=== PATIENT | female | born 1930 | race Caucasian/White ===

== ENCOUNTER 2016-10-22 12:46 | Outpatient (CLI) | payer MEDICARE, OTHER | END 2016-10-22 12:47 | disposition home or self-care (01) | DX: S42.291A Other displaced fracture of upper end of right humerus, initial encounter for closed fracture (principal); S46.011A Strain of muscle(s) and tendon(s) of the rotator cuff of right shoulder, initial encounter; S46.111A Strain of muscle, fascia and tendon of long head of biceps, right arm, initial encounter; M24.011 Loose body in right shoulder; M75.81 Other shoulder lesions, right shoulder; M75.51 Bursitis of right shoulder; M19.011 Primary osteoarthritis, right shoulder ==

== ENCOUNTER 2016-12-18 09:59 | Outpatient (CLI) | payer MEDICARE, OTHER | END 2016-12-18 10:00 | disposition home or self-care (01) | DX: R05 Cough (principal); R06.00 Dyspnea, unspecified ==

== ENCOUNTER 2017-07-16 09:53 | Outpatient (CLI) | payer MEDICARE, OTHER ==
[2017-07-16 17:43] LABS: BASOPHILS # (AUTO) 0.1 10^3/uL (0.0-0.1); BASOPHILS % (AUTO) 1.2 %; EOSINOPHILS # (AUTO) 0.3 10^3/uL (0.0-0.7); EOSINOPHILS % (AUTO) 2.8 %; HCT - HEMATOCRIT 44.7 % (37.0-47.0); HGB - HEMOGLOBIN 14.7 g/dL (12.0-16.0); LYMPHOCYTES # (AUTO) 3.2 10^3/uL (1.5-3.5); LYMPHOCYTES % (AUTO) 35.1 %; MEAN PLATELET VOLUME 8.9 fL (7.9-10.8); MONOCYTES # (AUTO) 0.9 10^3/uL (0.0-1.0); NEUTROPHILS # (AUTO) 4.6 10^3/uL (1.5-6.6); NEUTROPHILS % (AUTO) 50.9 %; NUCLEATED RED BLOOD CELLS AUTO 0.1 /100WBC; RED BLOOD COUNT 4.75 10^6/uL (4.20-5.40)
[2017-07-16 17:51] LABS: ALBUMIN/GLOBULIN RATIO 1.1 (1.0-2.2); BILIRUBIN,TOTAL 0.5 mg/dL (0.2-1.0); CALCIUM 9.6 mg/dL (8.5-10.3); CREATININE 0.8 mg/dL (0.4-1.0); POTASSIUM 3.7 mmol/L (3.5-5.0); TOTAL PROTEIN 7.4 g/dL (6.7-8.2)
== END 2017-07-16 09:54 | disposition home or self-care (01) ==
LOC: LAB.F 09:53
PROVIDERS: ATTEND Nurse Practitioner Family
DX: E55.9 Vitamin D deficiency, unspecified (principal)
CPT/HCPCS: 36415; 80053; 82306; 85025

== ENCOUNTER 2017-11-03 16:53 | Outpatient (CLI) | payer MEDICARE, OTHER | END 2017-11-03 16:54 | disposition critical access hospital (66) | LOC: EMS 16:53 | PROVIDERS: ATTEND Surgery | DX: R53.1 Weakness (principal) | CPT/HCPCS: A0425; A0429 ==

== ENCOUNTER 2017-11-03 17:29 | Inpatient (IN) | payer MEDICARE, OTHER ==
--- NOTE | 2017-11-03 17:52 | ED Physician Documentation ---
PD HPI URI - Stated complaint Stated Complaint: SICK - Chief complaint Chief Complaint: General - History obtained from History obtained from: Patient - History of Present Illness Timing - onset: How many weeks ago (2) Timing duration: Weeks (2 weeks of progressive weakness, poor appetite and poor intake (not nauseated per se), and feeling malaise.) Timing details: Gradual onset, Still present Associated symptoms: Bilateral edema (mild chronic). No: Fever, Chills, Nasal congestion, Sore throat, Dry cough, Productive cough, Chest pain, Dyspnea, NVD Contributing factors: No: Sick contact, Travel, Immunocompromised, COPD / asthma Improves by: No: Rest Worsened by: Activity Similar symptoms before: Has not had sx before Recently seen: Not recently seen Review of Systems Constitutional: reports: Fatigue, Weight Loss (mild without noting looseness of clothing or such, but says she has been mainly in her pajamas the past few weeks anyway.). denies: Fever, Chills, Myalgias Eyes: denies: Photophobia, Discharge Ears: denies: Ear pain Nose: denies: Rhinorrhea / runny nose, Congestion Throat: denies: Dental pain / toothache, Sore throat Cardiac: denies: Chest pain / pressure, Palpitations Respiratory: denies: Dyspnea, Cough, Wheezing GI: denies: Abdominal Pain, Nausea (but says she just does not have any appetite nor desire to eat.), Vomiting, Diarrhea : denies: Dysuria, Frequency, Hematuria Skin: denies: Rash, Lesions Musculoskeletal: denies: Neck pain, Back pain Neurologic: reports: Generalized weakness. denies: Focal weakness, Numbness, Near syncope Psychiatric: denies: Depressed, Anxiety, Insomnia Endocrine: reports: Weight loss (mild). denies: Weight gain, Easy bruising / bleeding Immunocompromised: denies: Immunocompromised PD PAST MEDICAL HISTORY - Past Medical History Cardiovascular: Hypertension, High cholesterol GI: GERD, Hiatal hernia PAEDIATRIC PHYSIOTHERAPIST: Miscarriage(s) Musculoskeletal: Osteoarthritis - Past Surgical History Past Surgical History: Yes /PAEDIATRIC PHYSIOTHERAPIST: Dilation and currettage HEENT: Cataracts - Present Medications Home Medications: Ambulatory Orders Medication Instructions Recorded Confirmed Ergocalciferol [Vitamin D2] 1 tab PO DAILY 08/10/16 08/10/16 Chlorthalidone 0 mg 11/03/17 Docusate Sodium 250Mg Capsule 250 mg PO DAILY 11/03/17 11/03/17 [Colace 250Mg Capsule] - Allergies Allergies/Adverse Reactions: Allergies Allergy/AdvReac Type Severity Reaction Status Date / Time No Known Drug Allergies Allergy Verified 07/17/14 16:28 - Social History Does the pt smoke?: No Smoking Status: Never smoker Does the pt drink ETOH?: No Does the pt have substance abuse?: No - Family History Family history: reports: Non contributory - POLST Patient has POLST: No PD ED PE NORMAL - Vitals Vital signs reviewed: Yes - General General: Alert and oriented X 3, No acute distress, Well developed/nourished, Other (appears generally weak but conversant and interacts well. ) - HEENT HEENT: Atraumatic, PERRL, Ears normal, Pharynx benign. No: Moist mucous membranes - Neck Neck: Supple, no meningeal sign, No adenopathy - Cardiac Cardiac: No murmur, No rub. No: RRR (irregular and slightly tachycardic) - Respiratory Respiratory: Clear bilaterally - Abdomen Abdomen: Normal bowel sounds, Soft, Non tender, Non distended, No organomegaly - Female Female : Deferred - Rectal Rectal: Deferred - Back Back: No CVA TTP, No spinal TTP - Derm Derm: Normal color, Warm and dry, No rash - Extremities Extremities: No deformity, No tenderness to palpate, Normal ROM s pain, No calf tenderness / cord, Other (1+ edema in both legs and ankles. ) - Neuro Neuro: Alert and oriented X 3, No motor deficit, Normal speech Eye Opening: Spontaneous Motor: Obeys Commands Verbal: Oriented GCS Score: 15 - Psych Psych: Normal mood Results - Vitals Vitals: Vital Signs - 24 hr 11/03/17 11/03/17 11/03/17 17:33 20:14 22:08 Temperature 37.1 C 36.4 C L Heart Rate 106 H 84 103 H Respiratory 16 18 23 Rate Blood Pressure 116/79 113/76 115/79 O2 Saturation 98 95 95 11/03/17 11/03/17 11/03/17 22:13 22:18 22:43 Temperature Heart Rate 91 83 89 Respiratory 20 17 19 Rate Blood Pressure 109/67 120/72 110/92 H O2 Saturation 94 97 97 Oxygen O2 Source Room air - EKG (time done) 21:24 Rate: Rate (enter#) Rhythm: Atrial fibrillation (109) Arma: Normal QRS: Normal Ischemia: Normal ST segments, Non specific changes. No: ST elevation c/w ischemia, ST depression Compare to prior EKG: Old EKG unavailable - Labs Labs: Laboratory Tests 11/03/17 11/03/17 11/03/17 19:15 19:15 19:15 WBC 19.6 H RBC 4.50 Hgb 13.2 Hct 40.2 MCV 89.5 MCH 29.4 MCHC 32.9 RDW 14.5 Plt Count 327 MPV 8.4 Neut # Not Reportable Lymph # Not Reportable [place] # Not Reportable Eos # Not Reportable Baso # Not Reportable Absolute Nucleated RBC Not Reportable Total Counted 100 Band Neuts % (Manual) 3 Abnorm Lymph % (Manual) 0 Nucleated RBC % Not Reportable Neutrophils # (Manual) 16.1 H Lymphocytes # (Manual) 2.0 Monocytes # (Manual) 1.4 H Eosinophils # (Manual) 0.2 Basophils # (Manual) 0.0 Differential Comment MANUAL DIFFERENTIAL Manual Slide Review Indicated Platelet Estimate NORMAL (130-450,000) Platelet Morphology NORMAL APPEARANCE RBC Morph Micro Appear NORMAL APPEARANCE Sodium 134 L Potassium 2.9 L Chloride 92 L Carbon Dioxide 28 Anion Gap 14.0 H BUN 52 H Creatinine 1.4 H Estimated GFR (MDRD) 35 L Glucose 113 H Lactic Acid Calcium 9.2 Magnesium 2.1 Total Bilirubin 0.7 AST 28 ALT 22 Alkaline Phosphatase 54 Total Creatine Kinase 42 Troponin I Total Protein 6.5 L Albumin 2.5 L Globulin 4.0 Albumin/Globulin Ratio 0.6 L Lipase 29 TSH 0.95 Urine Color Urine Clarity Urine pH Ur Specific [place] Urine Protein Urine Glucose (UA) Urine Ketones Urine Occult Blood Urine Nitrite Urine Bilirubin Urine Urobilinogen Ur Leukocyte Esterase Urine RBC Urine WBC Ur Squamous Epith Cells Urine Bacteria Ur Microscopic Review Urine Culture Comments Influenza A (Rapid) Influenza B (Rapid) Influenza Types A,B Ag 11/03/1718 18 19:15 19:15 20:40 WBC RBC Hgb Hct MCV MCH MCHC RDW Plt Count MPV Neut # Lymph # [place] # Eos # Baso # Absolute Nucleated RBC Total Counted Band Neuts % (Manual) Abnorm Lymph % (Manual) Nucleated RBC % Neutrophils # (Manual) Lymphocytes # (Manual) Monocytes # (Manual) Eosinophils # (Manual) Basophils # (Manual) Differential Comment Manual Slide Review Platelet Estimate Platelet Morphology RBC Morph Micro Appear Sodium Potassium Chloride Carbon Dioxide Anion Gap BUN Creatinine Estimated GFR (MDRD) Glucose Lactic Acid 1.1 Calcium Magnesium Total Bilirubin AST ALT Alkaline Phosphatase Total Creatine Kinase Troponin I < 0.04 Total Protein Albumin Globulin Albumin/Globulin Ratio Lipase TSH Urine Color Urine Clarity Urine pH Ur Specific [place] Urine Protein Urine Glucose (UA) Urine Ketones Urine Occult Blood Urine Nitrite Urine Bilirubin Urine Urobilinogen Ur Leukocyte Esterase Urine RBC Urine WBC Ur Squamous Epith Cells Urine Bacteria Ur Microscopic Review Urine Culture Comments Influenza A (Rapid) Negative Influenza B (Rapid) Negative Influenza Types A,B Ag - 11/03/17 21:00 WBC RBC Hgb Hct MCV MCH MCHC RDW Plt Count MPV Neut # Lymph # [place] # Eos # Baso # Absolute Nucleated RBC Total Counted Band Neuts % (Manual) Abnorm Lymph % (Manual) Nucleated RBC % Neutrophils # (Manual) Lymphocytes # (Manual) Monocytes # (Manual) Eosinophils # (Manual) Basophils # (Manual) Differential Comment Manual Slide Review Platelet Estimate Platelet Morphology RBC Morph Micro Appear Sodium Potassium Chloride Carbon Dioxide Anion Gap BUN Creatinine Estimated GFR (MDRD) Glucose Lactic Acid Calcium Magnesium Total Bilirubin AST ALT Alkaline Phosphatase Total Creatine Kinase Troponin I Total Protein Albumin Globulin Albumin/Globulin Ratio Lipase TSH Urine Color YELLOW Urine Clarity HAZY Urine pH 6.5 Ur Specific [place] <=1.005 Urine Protein TRACE Urine Glucose (UA) NEGATIVE Urine Ketones NEGATIVE Urine Occult Blood MODERATE H Urine Nitrite POSITIVE H Urine Bilirubin NEGATIVE Urine Urobilinogen 0.2 (NORMAL) Ur Leukocyte Esterase MODERATE H Urine RBC 6-10 H Urine WBC 6-10 H Ur Squamous Epith Cells MANY Squamous H Urine Bacteria Many H Ur Microscopic Review INDICATED Urine Culture Comments NOT INDICATED Influenza A (Rapid) Influenza B (Rapid) Influenza Types A,B Ag - Rads (name of study) chest Radiology: Prelim report reviewed (no infiltrates; no signs of failure. ), EMP read contemporaneously PD MEDICAL DECISION MAKING - ED course Complexity details: reviewed results (has low potassium and gave supplements. Has positive UA for UTI and WBC of 19K, but no fever and normal lactate, so UTI but not septic. Apparent new onset atrial fib with slightly rapid response rate. This will want further workup. ), considered differential, d/w patient Departure - Departure Disposition: 66 [facility] DC/Xfer Clinical Impression: Dehydration, Hypokalemia, Generalized weakness, Atrial fibrillation, new onset UTI (urinary tract infection) Qualifiers: Urinary tract infection type: site unspecified Hematuria presence: without hematuria Qualified Code(s): N39.0 - Urinary tract infection, site not specified Condition: Stable Record reviewed to determine appropriate education?: Yes
[2017-11-03] MEDS ORDERED: FAMOTIDINE 20 MG TABLET PO STA (19:06)
[2017-11-03] MEDS ORDERED: SODIUM CHLORIDE 0.9% 1,000 ML IV ONE ×2 (19:06→19:07)
[2017-11-03] MEDS ORDERED: ONDANSETRON ODT 4 MG TABLET TL STA (19:07)
[2017-11-03 19:27] LABS: BASOPHILS % (AUTO) 0.8 %; EOSINOPHILS % (AUTO) 0.4 %; HGB - HEMOGLOBIN 13.2 g/dL (12.0-16.0); LYMPHOCYTES % (AUTO) 8.8 %; MEAN CORPUSCULAR HEMOGLOBIN 29.4 pg (27.0-31.0); MEAN CORPUSCULAR HGB CONC 32.9 g/dL (32.0-36.0); MEAN CORPUSCULAR VOLUME 89.5 fL (81.0-99.0); MEAN PLATELET VOLUME 8.4 fL (7.9-10.8); MONOCYTES % (AUTO) 11.1 %; NEUTROPHILS % (AUTO) 78.9 %; PLT - PLATELET COUNT 327 10^3/uL (130-450); RED CELL DISTRIBUTION WIDTH 14.5 % (12.0-15.0); WHITE BLOOD COUNT 19.6 x10^3/uL (4.8-10.8)
[2017-11-03 19:30] LABS: ABNORMAL LYMPHS % (MANUAL) 0 %
[2017-11-03 19:41] LABS: ALBUMIN 2.5 g/dL (3.2-5.5); ALBUMIN/GLOBULIN RATIO 0.6 (1.0-2.2); BILIRUBIN,TOTAL 0.7 mg/dL (0.2-1.0); CALCIUM 9.2 mg/dL (8.5-10.3); CREATININE 1.4 mg/dL (0.4-1.0); MAGNESIUM 2.1 mg/dL (1.7-2.8); TOTAL PROTEIN 6.5 g/dL (6.7-8.2)
[2017-11-03 19:42] LABS: BAND NEUTROPHILS % (MANUAL) 3 %; DIFFERENTIAL COMMENT MANUAL DIFFERENTIAL; EOSINOPHILS # (MANUAL) 0.2 10^3/uL (0-0.7); LYMPHOCYTES % (MANUAL) 10 %; MONOCYTES # (MANUAL) 1.4 10^3/uL (0.0-1.0); NEUTROPHILS # (MANUAL) 16.1 10^3/uL (1.5-6.6); NEUTROPHILS % (MANUAL) 79 %; PLATELET ESTIMATE, MANUAL NORMAL (130-450,000) (NORMAL); PLATELET MORPHOLOGY NORMAL APPEARANCE (NORMAL); RBC MORPHOLOGY (MULTIPLE) NORMAL APPEARANCE (NORMAL)
--- NOTE | 2017-11-03 20:00 | XRAY Report ---
EXAM: CHEST RADIOGRAPHY EXAM DATE: 11/03/2017 07:43 PM. CLINICAL HISTORY: Chest pain left sided. COMPARISON: 12/18/2016. TECHNIQUE: 2 views. FINDINGS: Lungs/Pleura: No focal consolidation. Mild diffuse interstitial prominence is similar to prior and li becky chronic. No pleural effusion. No pneumothorax. Normal volumes. Mediastinum: Heart and mediastinal contours are within normal limits. Hilar hernia again demonstrated . Other: None. IMPRESSION: No acute cardiopulmonary abnormality. [facility] Referring Provider Line: [phone] SITE ID: [id number]
[2017-11-03] MEDS ORDERED: POTASSIUM CHLOR 10 MEQ/100 ML 10 MEQ/100 ML BAG IV ONE (20:16)
[2017-11-03] MEDS ORDERED: POTASSIUM BICARB 25 MEQ TABLET PO STA (20:16)
[2017-11-03 21:08] LABS: BILIRUBIN,URINE NEGATIVE (NEGATIVE); GLUCOSE, URINE (UA) NEGATIVE (NEGATIVE); KETONES,URINE (UA) NEGATIVE (NEGATIVE); LEUKOCYTE ESTERASE, URINE MODERATE (NEGATIVE); NITRITE,URINE POSITIVE (NEGATIVE); OCCULT BLOOD,URINE MODERATE (NEGATIVE); PH,URINE 6.5 PH (5.0-7.5); PROTEIN,URINE TRACE mg/dL (NEGATIVE); UROBILINOGEN,URINE 0.2 (NORMAL) E.U./dL (NORMAL)
[2017-11-03 21:12] LABS: CLARITY,URINE HAZY (CLEAR)
[2017-11-03] MEDS ORDERED: cefTRIAXone 1 GM in SODIUM CHLORIDE 0.9% MINIBAG 100 ML IV STA (21:28)
[2017-11-03 21:29] LABS: BACTERIA,URINE Many /HPF (None Seen); SQUAMOUS EPITHELIAL CELL,UR MANY Squamous (<= Few)
[2017-11-03] MEDS ORDERED: METOPROLOL 5 MG/5 ML VIAL IVP STA (21:56)
[2017-11-03] MEDS ORDERED: ONDANSETRON 4 MG/2 ML VIAL IVP PRN (22:57)
[2017-11-03] MEDS ORDERED: MORPHINE 2 MG/ML CARPUJECT IVP PRN (22:57)
[2017-11-03] MEDS ORDERED: TEMAZEPAM 15 MG CAPSULE PO PRN (22:57)
[2017-11-03] MEDS ORDERED: ENOXAPARIN 40 MG/0.4 ML SYRINGE SUBQ SCH ×2 (23:00→23:07)
[2017-11-03] MEDS ORDERED: DIGOXIN 500 MCG/2 ML AMP IVP SCH (23:59)
[2017-11-04] MEDS: D5NS W/20 MEQ KCL 1,000 ML IV SCH ×2 (00:51→11:17)
[2017-11-04] MEDS: POTASSIUM CHLOR 10 MEQ/100 ML 10 MEQ/100 ML BAG IV SCH ×2 (00:51→03:20)
[2017-11-04] MEDS: SODIUM CHLORIDE FLUSH 0.9% 10 ML SYRINGE IVP PRN ×2 (00:53→22:01)
[2017-11-04] MEDS ORDERED: cefTRIAXone 1 GM in SODIUM CHLORIDE 0.9% MINIBAG 100 ML IV SCH ×2 (01:00→21:00)
[2017-11-04] MEDS ORDERED: ENOXAPARIN 40 MG/0.4 ML SYRINGE SUBQ SCH (02:00)
--- NOTE | 2017-11-04 03:23 | HISTORY & PHYSICAL EXAMINATION ---
DATE OF SERVICE: Physician: Hallie Trotter MD HISTORY OF PRESENT ILLNESS: This is an 87-year-old, white female with a history of heart murmur and leg edema. The patient presented to the hospital after "two weeks of being sick and staying in her [facility]." The patient was found to be very weak and in new onset of atrial fibrillation, and her workup shows a urinary tract infection without sepsis in labs and urinalysis. The patient denies any dysuria, urgency or frequency, or flank pain. She has a poor appetite and has nausea without vomiting. She has been anorexic for about 2 weeks and probably also not as thirsty and drinking normally, but taking her chlorthalidone for her leg edema. There have been no palpitations, chest pain or dyspnea. She has the same constant leg edema that is not increased. There has had no fever or rigors. She denies any diarrhea. ALLERGIES: NONE. MEDICATIONS AT HOME 1. Chlorthalidone, unknown dose daily. 2. Vitamin D3, unknown dose daily. 3. Colace 250 mg daily. SOCIAL HISTORY: She is a nonsmoker who never smoked, drinks no alcohol, uses no illicit drugs. FAMILY HISTORY: No inherited diseases. REVIEW OF SYSTEMS: A comprehensive review of systems was performed, and the pertinent positives and negatives are above. PHYSICAL EXAMINATION GENERAL: Elderly, white female. She is in no acute distress. VITAL SIGNS: Blood pressure 103/68, pulse is 94, in atrial fibrillation, afebrile, room air saturation 95%. HEENT: Unremarkable. NECK: Without JVD or carotid bruits. LUNGS: Clear. HEART: Sounds irregular and with a soft systolic murmur. ABDOMEN: Soft, nontender. Positive bowel sounds. EXTREMITIES: Trace pedal edema. No clubbing or cyanosis. NEUROLOGIC: Intact. LABORATORIES: Sodium 134, potassium 2.9, BUN 52, creatinine 1.4, magnesium 2.1 , lactic acid 1.1. Normal liver tests. Troponin not detectable. Albumin 2.5. TSH normal at 0.95. White blood count 19.6 with a left shift, hemoglobin 13.2, platelet count normal at 327. No INR was done. Influenza A and B are negative. Her urinalysis showed a pH of 6.5 with moderate occult blood and positive nitrites and moderate leukocyte esterase, moderate red cells and white cells and many bacteria. Chest x-ray unremarkable. IMPRESSION/DIAGNOSES 1. Urinary tract infection. 2. New onset of atrial fibrillation with borderline rapid rate. 3. Hypokalemia. 4. Dehydration as evidenced by her acute tubular necrosis with elevated BUN/ creatinine. PLAN: Admit the patient on telemetry and administer digoxin x1 IV 250 mcg. She has already received one dose of IV beta radha IV push in the ER. There is evidence of chronotropic incompetence as her atrial fibrillation rate is not very tachycardic. Cycle troponins to rule out SC and follow her EKG. Obtain an Echo to evaluate LV and RV contractility and valvular function. The patient's CHADS score is 1 for age over 79, therefore aspirin on a daily basis is adequate for stroke prophylaxis; however, if tomorrow's Echo reveals that she does have congestive heart failure then her score would be 2 and she would then be a candidate for long-term anticoagulation for stroke prevention. Because of this latter reason, I have started Lovenox at 1 mg/kg qd. (at a treatment dose, not a prophylactic DVT dose), due to renal dysfunction. The determination about type of stroke prevention treatment will be made after tomorrow's evaluations. Start the patient on IV fluids with D5 for calories, normal saline for her hyponatremia with potassium additive, and also give iv potassium riders. Hold her triamterene/HCTZ. Obtain a urine culture and blood culture, and continue with the empiric IV ceftriaxone that was started in the emergency room, for UTI treatment. CODE STATUS: FULL CODE. DEEP VENOUS THROMBOSIS PROPHYLAXIS: Lovenox. ATTESTATION: The patient is expected to be discharged or transferred to another facility within 96 hours: Yes. TD: 11/04/2017 03:14 SCOOBY
[2017-11-04] MEDS: SODIUM CHLORIDE FLUSH 0.9% 10 ML SYRINGE IVP SCH ×3 (05:23→21:18)
[2017-11-04 06:03] LABS: BASOPHILS % (AUTO) 0.2 %; EOSINOPHILS # (AUTO) 0.1 10^3/uL (0.0-0.7); EOSINOPHILS % (AUTO) 0.6 %; HGB - HEMOGLOBIN 11.6 g/dL (12.0-16.0); LYMPHOCYTES # (AUTO) 1.4 10^3/uL (1.5-3.5); LYMPHOCYTES % (AUTO) 7.7 %; MEAN CORPUSCULAR HEMOGLOBIN 29.5 pg (27.0-31.0); MEAN CORPUSCULAR HGB CONC 32.4 g/dL (32.0-36.0); MEAN PLATELET VOLUME 8.6 fL (7.9-10.8); MONOCYTES % (AUTO) 11.1 %; NEUTROPHILS # (AUTO) 14.4 10^3/uL (1.5-6.6); NEUTROPHILS % (AUTO) 80.4 %; PLT - PLATELET COUNT 288 10^3/uL (130-450); RED BLOOD COUNT 3.94 10^6/uL (4.20-5.40); RED CELL DISTRIBUTION WIDTH 14.2 % (12.0-15.0); WHITE BLOOD COUNT 17.9 x10^3/uL (4.8-10.8)
[2017-11-04 06:25] LABS: CREATININE 1.2 mg/dL (0.4-1.0)
[2017-11-04 06:27] LABS: PLATELET ESTIMATE, MANUAL NORMAL (130-450,000) (NORMAL); PLATELET MORPHOLOGY NORMAL APPEARANCE (NORMAL); RBC MORPHOLOGY (MULTIPLE) NORMAL APPEARANCE (NORMAL)
[2017-11-04] MEDS ORDERED: POTASSIUM CHLORIDE 10 MEQ CAPSULE PO SCH (08:00)
[2017-11-04] MEDS: FAMOTIDINE 20 MG TABLET PO SCH (08:39)
[2017-11-04] MEDS: ASPIRIN EC 325 MG TABLET PO SCH (08:39)
[2017-11-04] MEDS: DOCUSATE SODIUM 250 MG CAPSULE PO SCH (08:39)
[2017-11-04] MEDS: ENOXAPARIN 80 MG/0.8 ML SYRINGE SUBQ SCH (08:39)
--- NOTE | 2017-11-04 09:16 | PROVIDER PROGRESS NOTE ---
Subjective - Prog Note Date Prog Note Date: 11/04/17 Prog Note Time: 09:14 - Subjective Pt reports feeling: Improved Subjective: Patient sitting up in bed, just finished breakfast, she says "I am sooo much better". She reports improved appetite which was very poor x2 weeks. Her fatigue feels resolved but she has not exerted herself yet. She denies chest pain, SOB, abdominal or back pain. She denies nausea, constipation or diarrhea. Denies swelling in her legs. Current Medications - Current Medications Current Medications: Active Medications Acetaminophen (Tylenol) 650 mg PO Q4HR PRN PRN Reason: Pain or Fever > 38C (100.4F) Aspirin (Ecotrin) 325 mg PO DAILY [facility] Last Admin: 11/04/17 08:39 Dose: 325 mg Docusate Sodium (Colace 250mg Capsule) 250 mg PO DAILY [facility] Last Admin: 11/04/17 08:39 Dose: 250 mg Enoxaparin Sodium (Lovenox) 70 mg SUBQ DAILY [facility] Last Admin: 11/04/17 08:39 Dose: 70 mg Famotidine (Pepcid) 20 mg PO DAILY [facility] Last Admin: 11/04/17 08:39 Dose: 20 mg Potassium Chloride/Dextrose/Sod Cl () 1,000 mls @ 100 mls/hr IV .Q10H [facility] Last Admin: 11/04/17 00:51 Dose: 100 mls/hr Ceftriaxone Sodium 1 gm/ (Sodium Chloride) 100 mls @ 200 mls/hr IV Q24H [facility] Morphine Sulfate (Morphine (Carpuject)) 2 mg IVP Q2HR PRN PRN Reason: Pain 8 to 10 Ondansetron HCl (Zofran Inj) 4 mg IVP Q6HR PRN PRN Reason: Nausea / Vomiting Polyethylene Glycol (Miralax) 17 gm PO DAILY [facility] Potassium Chloride (Micro-K) 10 meq PO DAILYWM [facility] Last Admin: 11/04/17 08:39 Dose: 10 meq Sodium Chloride (Normal Saline Flush 0.9%) 10 ml IVP PRN PRN PRN Reason: NEEDED PER PROVIDER ORDERS Last Admin: 11/04/17 00:53 Dose: 10 ml Sodium Chloride (Normal Saline Flush 0.9%) 10 ml IVP Q8HR [facility] Last Admin: 11/04/17 05:23 Dose: Not Given Temazepam (Restoril) 15 mg PO QPM PRN PRN Reason: Insomnia Chlorthalidone 12.5 mg PO DAILY 11/03/17 Cholecalciferol (Vitamin D3) [Vitamin D3] 5,000 units PO DAILY 11/04/17 Docusate Sodium 200 mg PO DAILY 11/04/17 Objective - Vital Signs/Intake & Output Reviewed Vital Signs: Yes Vital Signs: Vital Signs x48h Temp Pulse Resp BP Pulse Ox 11/04/17 07:48 36.3 C L 95 18 113/68 94 11/04/17 05:00 36.8 C 96 16 124/57 L 94 Intake & Output: Intake & Output 11/01/17 11/02/17 11/03/17 11/04/17 23:59 23:59 23:59 23:59 Intake Total 500 Balance 500 - Objective General Appearance: positive: No acute distress, Alert Eyes Bilateral: positive: PERRL, No scleral icterus ENT: positive: Pharynx nml, No signs of dehydration Neck: positive: No JVD Respiratory: positive: Chest non-tender, No respiratory distress, Breath sounds nml Cardiovascular: positive: Irregularly irregular, Systolic murmur Peripheral Pulses: 1+ Dorsalis pedis (R), 1+ Dorsalis pedis (L), 2+ Radial (R), 2+ Radial (L) Abdomen: positive: Non-tender, Nml bowel sounds, No distention Skin: positive: Color nml, No rash, Warm, Dry Extremities: positive: Non-tender, Full ROM, Nml appearance, No pedal edema Neurologic/Psychiatric: positive: Oriented x3, Motor nml, Sensation nml, Mood/ affect nml - Lab Results Fish Bones: 11/04/17 05:24 11/04/17 05:24 Other Labs: Lab Results x24hrs 11/04/17 11/04/17 11/04/17 Range/Units 05:24 05:24 05:24 WBC 17.9 H (4.8-10.8) x10^3/uL RBC 3.94 L (4.20-5.40) 10^6/uL Hgb 11.6 L (12.0-16.0) g/dL Hct 35.9 L (37.0-47.0) % MCV 91.0 (81.0-99.0) fL MCH 29.5 (27.0-31.0) pg MCHC 32.4 (32.0-36.0) g/dL RDW 14.2 (12.0-15.0) % Plt Count 288 (130-450) 10^3/uL MPV 8.6 (7.9-10.8) fL Neut # 14.4 H (1.5-6.6) 10^3/uL Lymph # 1.4 L (1.5-3.5) 10^3/uL [place] # 2.0 H (0.0-1.0) 10^3/uL Eos # 0.1 (0.0-0.7) 10^3/uL Baso # 0.0 (0.0-0.1) 10^3/uL Absolute Nucleated RBC 0.01 x10^3/uL Nucleated RBC % 0.0 /100WBC Manual Slide Review Indicated Platelet Estimate NORMAL (130-450,000) (NORMAL) Platelet Morphology NORMAL APPEARANCE (NORMAL) RBC Morph Micro Appear NORMAL APPEARANCE (NORMAL) Sodium 136 (135-145) mmol/L Potassium 3.8 (3.5-5.0) mmol/L Chloride 101 (101-111) mmol/L Carbon Dioxide 26 (21-32) mmol/L Anion Gap 9.0 (6-13) BUN 38 H (6-20) mg/dL Creatinine 1.2 H (0.4-1.0) mg/dL Estimated GFR (MDRD) 42 L (>89) Glucose 138 H (70-100) mg/dL Calcium 8.0 L (8.5-10.3) mg/dL Magnesium 2.0 (1.7-2.8) mg/dL Troponin I 0.08 (<0.49) ng/mL Assessment/Plan - Problem List (1) Atrial fibrillation, new onset Impression: Presented with fatigue, noted to be in Afib with rate in 110s, rate controlled after IV metoprolol and IV dig. Rate now 80s. Symptoms resolved. Trop <0.03--> 0.08, still not + and I suspect due to stress fo infection/afib. -ASA 325 given CHADS score 1, no falls x1yr -Continue low dose toprol xl, with parameters -No need for tele given controlled rate -Repeat trop at 11am -ECHO I educated patient on patho of afib and stroke risk and stratification. (2) ROMI (acute kidney injury) Impression: Based on RIFLE criteria patient sustained ROMI given creatinine 1.4 with baseline of 0.8. This appears due to dehydration from poor PO intake and and concomitant use of diuretics. Given 2L NS and then MIVF and creat improving. Also ate well from breakfast. -Recheck creat @11 and DC IV fluids -Encourage PO intake -Hold triamterene/HCTZ -Avoid nephrotoxic agents (3) Hypokalemia Impression: K of 2.9 on arrival, likely from diuretics + poor PO intake. Given IV and PO replacement. K now 3.8. -DC PO KCl -MIVF+KCl this afternoon (4) Urinary tract infection Impression: No prior history, WBC 19k, but UA in ER contaminated, only symptom is urgency but that just started here after IVF boluses. Given CTX in ER. -Recollect UA via straight cath -Await urine cx -Continue CTX in the meantime +met SEPSIS criteria (leukocytosis and tachycardia) with urinary source. Given 2L NS and antibx and sepsis physiology has resolved. Qualifiers: Urinary tract infection type: acute cystitis Hematuria presence: with hematuria Qualified Code(s): N30.01 - Acute cystitis with hematuria (5) Generalized weakness Impression: Having generalized weakness/fatigue at home for weeks, this likely could be from her Afib. She also had poor appetite and that could have compounded things. Now feeling back to her usual self, eating well. -Mobilize with RN in room, asses for any further needs (6) Sepsis Impression: RESOLVED. Related to UTI, see above HOSPITAL ISSUES: DVT prophylaxis: Lovenox Code Status: FULL DC PLAN: later today or tomorrow based on patients response to therapy
[2017-11-04] MEDS: POLYETHYLENE GLYCOL 3350 17 GM PACKET PO SCH (10:23)
[2017-11-04 10:28] LABS: BILIRUBIN,URINE NEGATIVE (NEGATIVE); GLUCOSE, URINE (UA) NEGATIVE (NEGATIVE); KETONES,URINE (UA) NEGATIVE (NEGATIVE); LEUKOCYTE ESTERASE, URINE SMALL (NEGATIVE); NITRITE,URINE NEGATIVE (NEGATIVE); OCCULT BLOOD,URINE MODERATE (NEGATIVE); PROTEIN,URINE NEGATIVE (NEGATIVE); UROBILINOGEN,URINE 0.2 (NORMAL) E.U./dL (NORMAL)
[2017-11-04 10:30] LABS: CLARITY,URINE HAZY (CLEAR)
[2017-11-04 10:37] LABS: BACTERIA,URINE Few /HPF (None Seen); RBC,URINE 0-5 /HPF (0-5); SQUAMOUS EPITHELIAL CELL,UR MANY Squamous (<= Few); WBC CLUMPS,URINE PRESENT
[2017-11-04] MEDS ORDERED: METOPROLOL TARTRATE 25 MG TABLET PO SCH (21:00)
[2017-11-05] MEDS: SODIUM CHLORIDE FLUSH 0.9% 10 ML SYRINGE IVP SCH ×2 (05:40→09:06)
[2017-11-05 05:47] LABS: HGB - HEMOGLOBIN 11.9 g/dL (12.0-16.0); MEAN CORPUSCULAR HEMOGLOBIN 29.4 pg (27.0-31.0); MEAN CORPUSCULAR HGB CONC 32.6 g/dL (32.0-36.0); MEAN CORPUSCULAR VOLUME 90.2 fL (81.0-99.0); MEAN PLATELET VOLUME 8.4 fL (7.9-10.8); RED BLOOD COUNT 4.04 10^6/uL (4.20-5.40); RED CELL DISTRIBUTION WIDTH 14.6 % (12.0-15.0); WHITE BLOOD COUNT 15.5 x10^3/uL (4.8-10.8)
[2017-11-05 05:54] LABS: CALCIUM 8.5 mg/dL (8.5-10.3); CREATININE 1.1 mg/dL (0.4-1.0)
[2017-11-05] MEDS: DOCUSATE SODIUM 250 MG CAPSULE PO SCH (08:42)
[2017-11-05] MEDS: ASPIRIN EC 325 MG TABLET PO SCH (08:42)
[2017-11-05] MEDS: ENOXAPARIN 80 MG/0.8 ML SYRINGE SUBQ SCH (08:42)
[2017-11-05] MEDS: FAMOTIDINE 20 MG TABLET PO SCH (08:42)
[2017-11-05] MEDS: POLYETHYLENE GLYCOL 3350 17 GM PACKET PO SCH (08:44)
[2017-11-05] MEDS: METOPROLOL SUCCINATE 25 MG TABLET PO SCH ×2 (08:48→20:32)
[2017-11-05] MEDS ORDERED: DOCUSATE SODIUM 250 MG CAPSULE PO SCH ×2 (09:00→09:05)
--- NOTE | 2017-11-05 12:55 | PROVIDER PROGRESS NOTE ---
<Tali Aguirre L - Last Filed: 11/05/17 19:59> Subjective - Subjective Subjective: she was stable enough for discharge today until her afib rate sped up so held one more day she is without IV since it fell out. IV meds stopped and po meds substituted where appropriate: Macrobid for UTI. Objective - Vital Signs/Intake & Output Vital Signs: Vital Signs x48h Temp Pulse Resp BP BP Pulse Ox 11/05/17 16:07 36.9 C 78 24 151/82 H 98 11/05/17 13:00 36.7 C 99 18 149/82 H 94 Intake & Output: Intake & Output 11/02/17 11/03/17 11/04/17 11/05/17 23:59 23:59 23:59 23:59 Intake Total 2451.667 780.033 Output Total 350 Balance 2101.667 780.033 - Lab Results Fish Bones: 11/05/17 05:21 11/05/17 05:21 Other Labs: Lab Results x24hrs 11/05/17 11/05/17 Range/Units 05:21 05:21 WBC 15.5 H (4.8-10.8) x10^3/uL RBC 4.04 L (4.20-5.40) 10^6/uL Hgb 11.9 L (12.0-16.0) g/dL Hct 36.5 L (37.0-47.0) % MCV 90.2 (81.0-99.0) fL MCH 29.4 (27.0-31.0) pg MCHC 32.6 (32.0-36.0) g/dL RDW 14.6 (12.0-15.0) % Plt Count 364 (130-450) 10^3/uL MPV 8.4 (7.9-10.8) fL Sodium 137 (135-145) mmol/L Potassium 4.0 (3.5-5.0) mmol/L Chloride 105 (101-111) mmol/L Carbon Dioxide 26 (21-32) mmol/L Anion Gap 6.0 (6-13) BUN 24 H (6-20) mg/dL Creatinine 1.1 H (0.4-1.0) mg/dL Estimated GFR (MDRD) 47 L (>89) Glucose 103 H (70-100) mg/dL Calcium 8.5 (8.5-10.3) mg/dL <Flori Enriquez - Last Filed: 11/06/17 11:41> Subjective - Prog Note Date Prog Note Date: 11/05/17 Prog Note Time: 12:55 - Subjective Pt reports feeling: Improved Subjective: Patient complained of low energy. She denied SOB, chest pain or pressure, N/V or a new cough. She states, she "just feels tired". Current Medications - Current Medications Current Medications: Active Medications Acetaminophen (Tylenol) 650 mg PO Q4HR PRN PRN Reason: Pain or Fever > 38C (100.4F) Last Admin: 11/05/17 23:56 Dose: 650 mg Aspirin (Ecotrin) 325 mg PO DAILY [facility] Last Admin: 11/06/17 09:39 Dose: 325 mg Chlorthalidone (Chlorthalidone) 12.5 mg PO DAILY [facility] Last Admin: 11/06/17 09:39 Dose: 12.5 mg Enoxaparin Sodium (Lovenox) 70 mg SUBQ DAILY [facility] Last Admin: 11/06/17 09:40 Dose: 70 mg Famotidine (Pepcid) 20 mg PO DAILY [facility] Last Admin: 11/06/17 09:39 Dose: 20 mg Metoprolol Succinate (Toprol Xl) 25 mg PO DAILY [facility] Last Admin: 11/06/17 09:39 Dose: 25 mg Nitrofurantoin (Macrobid) 100 mg PO BID [facility] Last Admin: 11/06/17 09:39 Dose: 100 mg Polyethylene Glycol (Miralax) 17 gm PO DAILY [facility] Last Admin: 11/06/17 07:32 Dose: Not Given Temazepam (Restoril) 15 mg PO QPM PRN PRN Reason: Insomnia Chlorthalidone 12.5 mg PO DAILY 11/03/17 Cholecalciferol (Vitamin D3) [Vitamin D3] 5,000 units PO DAILY 11/04/17 Docusate Sodium 200 mg PO DAILY 11/04/17 Objective - Vital Signs/Intake & Output Reviewed Vital Signs: Yes Vital Signs: Vital Signs x48h Temp Pulse Resp BP Pulse Ox 11/05/17 08:46 36.6 C 98 20 135/78 H 95 11/05/17 05:20 36.6 C 95 16 148/82 H 95 Intake & Output: Intake & Output 11/02/17 11/03/17 11/04/17 11/05/17 23:59 23:59 23:59 23:59 Intake Total 2451.667 780.033 Output Total 350 Balance 2101.667 780.033 - Objective General Appearance: positive: No acute distress Eyes Bilateral: positive: Normal inspection Eyes: OU Conjunctivae pale ENT: positive: ENT inspection nml, Pharynx nml, Dry mucous membranes Neck: positive: Nml inspection, Thyroid nml, No JVD, Stiff neck Respiratory: positive: Chest non-tender, No respiratory distress, Breath sounds nml, Other (diminished.) Peripheral Pulses: 2+ Radial (R), 2+ Radial (L) Abdomen: positive: Non-tender, No organomegaly, Nml bowel sounds, No distention Back: positive: Nml inspection Skin: positive: No rash, Warm, Dry, Pallor Extremities: positive: Non-tender, Full ROM Neurologic/Psychiatric: positive: Disoriented to time, Weakness, Sensory loss, Depressed mood/affect, Other (baseline delay) Reflexes: Bicep (R): 2+, Bicep (L): 2+ - Lab Results Fish Bones: 11/06/17 05:24 11/06/17 05:24 Other Labs: Lab Results x24hrs 11/05/17 11/05/17 Range/Units 05:21 05:21 WBC 15.5 H (4.8-10.8) x10^3/uL RBC 4.04 L (4.20-5.40) 10^6/uL Hgb 11.9 L (12.0-16.0) g/dL Hct 36.5 L (37.0-47.0) % MCV 90.2 (81.0-99.0) fL MCH 29.4 (27.0-31.0) pg MCHC 32.6 (32.0-36.0) g/dL RDW 14.6 (12.0-15.0) % Plt Count 364 (130-450) 10^3/uL MPV 8.4 (7.9-10.8) fL Sodium 137 (135-145) mmol/L Potassium 4.0 (3.5-5.0) mmol/L Chloride 105 (101-111) mmol/L Carbon Dioxide 26 (21-32) mmol/L Anion Gap 6.0 (6-13) BUN 24 H (6-20) mg/dL Creatinine 1.1 H (0.4-1.0) mg/dL Estimated GFR (MDRD) 47 L (>89) Glucose 103 H (70-100) mg/dL Calcium 8.5 (8.5-10.3) mg/dL - Diagnostic Imaging Diagnostic Imaging Results: positive: Final report reviewed Assessment/Plan - Problem List (1) ROIM (acute kidney injury) Impression: Patient had an elevated creatinine of 1.4 on admission with baseline of 0.8. This appears due to dehydration from poor PO intake and use of diuretics. Patient was given 2L NS. Creatinine has been slowly improving and was trending downward today at 1.1. She has had improved PO intake. Plan: -Encourage PO intake -Hold triamterene/HCTZ -Avoid nephrotoxic agents (2) Atrial fibrillation, new onset Impression: Presented with fatigue, noted to be in Afib with rate in 110s, rate controlled after IV metoprolol and a few doses of dig IV. Symptoms resolved. Trop <0.03-- > 0.08, and now normal at 0.04, and this may have been due to stress of infection/afib. Plan: -ASA 325 given CHADS score 1, no falls x1yr -Increased dose and changed metoprolol to toprol xl, with parameters. (3) Generalized weakness Impression: Having generalized weakness/fatigue at home for weeks, this likely could be from her Afib. She also had poor appetite and that could have compounded things. Now feeling back to her usual self, eating well. Plan: -Mobilize with RN in room, asses for any further needs (4) Hypokalemia Impression: K of 2.9 on arrival, likely from diuretics + poor PO intake. Given IV and PO replacement. K now 4.0. Plan: Continue to monitor. (5) Urinary tract infection Impression: No prior history, WBC 19k, but UA in ER contaminated, only symptom is urgency but that just started here after IVF boluses. Given CTX in ER. Urine cultures were not indicated. Patient has been afebrile. IV dosing was completed, so PO macrobid was started by ASA RANDLE. Plan: continue treatment and encourage frequent toileting. Qualifiers: Urinary tract infection type: acute cystitis Hematuria presence: with hematuria Qualified Code(s): N30.01 - Acute cystitis with hematuria
[2017-11-05] MEDS: NITROFURANTOIN MACRO 100 MG CAPSULE PO SCH (20:32)
[2017-11-05] MEDS: ACETAMINOPHEN 325 MG TABLET PO PRN (23:56)
--- NOTE | 2017-11-06 02:15 | PROVIDER PROGRESS NOTE ---
Car Usher Note - Car Usher Note Car Usher Note: 11/06/17 02:11 she spiked a temp late this evening with a subsequent rise of pulse rate to 110' s. Once fever down, pulse came down. no complaints other that pleuritic right flank pain but that was fleeting and went away. she is now on macrodantin since the evening for UTI and IV out. 93% on RA, pulse 90 right now asleep, awakens easily confused? bc she describes the flank pain as chest pain but none now. comfortable. clear lungs irreg rate and rhythm. abd bening. A/P fever in a pt w UTI. off IV abx and on oral starting 24 hours later. if spikes again, reculture. resume IV abx. tachycardia from fever resolved.
[2017-11-06 06:12] LABS: BASOPHILS % (AUTO) 0.3 %; EOSINOPHILS % (AUTO) 0.3 %; HGB - HEMOGLOBIN 12.1 g/dL (12.0-16.0); LYMPHOCYTES % (AUTO) 7.8 %; MEAN CORPUSCULAR HEMOGLOBIN 29.5 pg (27.0-31.0); MEAN CORPUSCULAR HGB CONC 32.5 g/dL (32.0-36.0); MEAN CORPUSCULAR VOLUME 90.8 fL (81.0-99.0); MONOCYTES % (AUTO) 7.5 %; NEUTROPHILS % (AUTO) 84.1 %; PLT - PLATELET COUNT 384 10^3/uL (130-450); RED CELL DISTRIBUTION WIDTH 14.5 % (12.0-15.0); WHITE BLOOD COUNT 20.1 x10^3/uL (4.8-10.8)
[2017-11-06 06:18] LABS: ALBUMIN 2.1 g/dL (3.2-5.5); ALBUMIN/GLOBULIN RATIO 0.6 (1.0-2.2); BILIRUBIN,TOTAL 0.5 mg/dL (0.2-1.0); CALCIUM 8.6 mg/dL (8.5-10.3); TOTAL PROTEIN 5.9 g/dL (6.7-8.2)
[2017-11-06 06:25] LABS: ABNORMAL LYMPHS % (MANUAL) 0 %
[2017-11-06 06:50] LABS: BAND NEUTROPHILS % (MANUAL) 3 %; DIFFERENTIAL COMMENT MANUAL DIFFERENTIAL; EOSINOPHILS # (MANUAL) 0.4 10^3/uL (0-0.7); LYMPHOCYTES # (MANUAL) 2.4 10^3/uL (1.5-3.5); LYMPHOCYTES % (MANUAL) 11 %; MONOCYTES # (MANUAL) 1.4 10^3/uL (0.0-1.0); MYELOCYTES % (MANUAL) 1 %; NEUTROPHILS # (MANUAL) 15.7 10^3/uL (1.5-6.6); NEUTROPHILS % (MANUAL) 75 %; PLATELET ESTIMATE, MANUAL NORMAL (130-450,000) (NORMAL); RBC MORPHOLOGY (MULTIPLE) NORMAL APPEARANCE (NORMAL)
[2017-11-06] MEDS: POLYETHYLENE GLYCOL 3350 17 GM PACKET PO SCH (07:32)
[2017-11-06] MEDS ORDERED: METOPROLOL SUCCINATE 25 MG TABLET PO SCH (09:00)
[2017-11-06] MEDS: ASPIRIN EC 325 MG TABLET PO SCH (09:39)
[2017-11-06] MEDS: NITROFURANTOIN MACRO 100 MG CAPSULE PO SCH ×2 (09:39→21:28)
[2017-11-06] MEDS: CHLORTHALIDONE 25 MG TABLET PO SCH (09:39)
[2017-11-06] MEDS: FAMOTIDINE 20 MG TABLET PO SCH (09:39)
[2017-11-06] MEDS: ENOXAPARIN 80 MG/0.8 ML SYRINGE SUBQ SCH (09:40)
--- NOTE | 2017-11-06 11:13 | XRAY Report ---
TWO VIEW CHEST: 11/03/2017 CLINICAL INDICATION: Fever, rib pain. COMPARISON: 11/03/2017 FINDINGS: Frontal and lateral views of the chest demonstrate a mildly enlarged cardiac silhouette. There is a moderate hiatal hernia present. Trace effusions are seen posteriorly. No focal infiltrate or pneumothorax is present. IMPRESSION: CARDIOMEGALY AND TRACE EFFUSIONS. MODERATE HIATAL HERNIA. TD: 11/06/2017 11:13
--- NOTE | 2017-11-06 11:42 | PROVIDER PROGRESS NOTE ---
Subjective - Prog Note Date Prog Note Date: 11/06/17 Prog Note Time: 11:42 - Subjective Pt reports feeling: No change Subjective: Natalya had no complaints but continues to have a poor appetite. She states that her energy is slowly improving. She denies chest pain, SOB, N/V or a new cough. I updated her daughter via phone per request and plan for an additional phone call in the AM. Current Medications - Current Medications Current Medications: Active Medications Acetaminophen (Tylenol) 650 mg PO Q4HR PRN PRN Reason: Pain or Fever > 38C (100.4F) Last Admin: 11/05/17 23:56 Dose: 650 mg Aspirin (Ecotrin) 325 mg PO DAILY [facility] Last Admin: 11/06/17 09:39 Dose: 325 mg Chlorthalidone (Chlorthalidone) 12.5 mg PO DAILY [facility] Last Admin: 11/06/17 09:39 Dose: 12.5 mg Enoxaparin Sodium (Lovenox) 70 mg SUBQ DAILY [facility] Last Admin: 11/06/17 09:40 Dose: 70 mg Famotidine (Pepcid) 20 mg PO DAILY [facility] Last Admin: 11/06/17 09:39 Dose: 20 mg Metoprolol Succinate (Toprol Xl) 37.5 mg PO DAILY [facility] Nitrofurantoin (Macrobid) 100 mg PO BID [facility] Last Admin: 11/06/17 09:39 Dose: 100 mg Polyethylene Glycol (Miralax) 17 gm PO DAILY [facility] Last Admin: 11/06/17 07:32 Dose: Not Given Temazepam (Restoril) 15 mg PO QPM PRN PRN Reason: Insomnia Chlorthalidone 12.5 mg PO DAILY 11/03/17 Cholecalciferol (Vitamin D3) [Vitamin D3] 5,000 units PO DAILY 11/04/17 Docusate Sodium 200 mg PO DAILY 11/04/17 Objective - Vital Signs/Intake & Output Reviewed Vital Signs: Yes Vital Signs: Vital Signs x48h Temp Pulse Resp BP Pulse Ox 11/06/17 07:29 36.6 C 95 20 130/74 95 11/06/17 05:19 36.4 C L 94 16 134/86 H 94 Intake & Output: Intake & Output 11/03/17 11/04/17 11/05/17 11/06/17 23:59 23:59 23:59 23:59 Intake Total 2451.667 980.033 630 Output Total 350 Balance 2101.667 980.033 630 - Objective General Appearance: positive: No acute distress, Alert Eyes Bilateral: positive: Normal inspection, PERRL ENT: positive: ENT inspection nml, Pharynx nml, No signs of dehydration Neck: positive: Nml inspection, Thyroid nml, Trachea midline Respiratory: positive: Chest non-tender, No respiratory distress, Breath sounds nml Cardiovascular: positive: No gallop, Irregularly irregular, Systolic murmur, Decreased pulse(s) Peripheral Pulses: 2+ Radial (R), 2+ Radial (L) Abdomen: positive: Non-tender, No organomegaly, Nml bowel sounds, No distention Back: positive: Nml inspection Skin: positive: No rash, Warm, Dry Extremities: positive: Non-tender, Full ROM, Nml appearance, Pedal edema (mild) Neurologic/Psychiatric: positive: CN's nml (2-12), Weakness, Sensory loss, Depressed mood/affect Reflexes: Bicep (R): 2+, Bicep (L): 2+ - Lab Results Fish Bones: 11/06/17 05:24 11/06/17 05:24 Other Labs: Lab Results x24hrs 11/06/17 11/06/17 Range/Units 05:24 05:24 WBC 20.1 H (4.8-10.8) x10^3/uL RBC 4.10 L (4.20-5.40) 10^6/uL Hgb 12.1 (12.0-16.0) g/dL Hct 37.2 (37.0-47.0) % MCV 90.8 (81.0-99.0) fL MCH 29.5 (27.0-31.0) pg MCHC 32.5 (32.0-36.0) g/dL RDW 14.5 (12.0-15.0) % Plt Count 384 (130-450) 10^3/uL MPV 8.0 (7.9-10.8) fL Neut # Not Reportable Lymph # Not Reportable [place] # Not Reportable Eos # Not Reportable Baso # Not Reportable Absolute Nucleated RBC Not Reportable Total Counted 100 Band Neuts % (Manual) 3 (0 - 10) % Reactive Lymphs % (Man) 1 % Abnorm Lymph % (Manual) 0 % Myelocytes % 1 H ( - 0) % Nucleated RBC % Not Reportable Neutrophils # (Manual) 15.7 H (1.5-6.6) 10^3/uL Lymphocytes # (Manual) 2.4 (1.5-3.5) 10^3/uL Monocytes # (Manual) 1.4 H (0.0-1.0) 10^3/uL Eosinophils # (Manual) 0.4 (0-0.7) 10^3/uL Basophils # (Manual) 0.0 (0-0.1) 10^3/uL Differential Comment MANUAL DIFFERENTIAL Platelet Estimate NORMAL (130-450,000) (NORMAL) RBC Morph Micro Appear NORMAL APPEARANCE (NORMAL) Sodium 139 (135-145) mmol/L Potassium 3.6 (3.5-5.0) mmol/L Chloride 103 (101-111) mmol/L Carbon Dioxide 29 (21-32) mmol/L Anion Gap 7.0 (6-13) BUN 18 (6-20) mg/dL Creatinine 1.0 (0.4-1.0) mg/dL Estimated GFR (MDRD) 52 L (>89) Glucose 118 H (70-100) mg/dL Calcium 8.6 (8.5-10.3) mg/dL Total Bilirubin 0.5 (0.2-1.0) mg/dL AST 15 (10-42) IU/L ALT 13 (10-60) IU/L Alkaline Phosphatase 47 (42-121) IU/L Total Protein 5.9 L (6.7-8.2) g/dL Albumin 2.1 L (3.2-5.5) g/dL Globulin 3.8 (2.1-4.2) g/dL Albumin/Globulin Ratio 0.6 L (1.0-2.2) - Diagnostic Imaging Diagnostic Imaging Results: positive: Final report reviewed Assessment/Plan - Problem List (1) ROMI (acute kidney injury) Impression: Patient had an elevated creatinine of 1.4 on admission with baseline of 0.8. This appears due to dehydration from poor PO intake and use of diuretics. Patient was given 2L NS. Creatinine has been slowly improving and continues to trend downward today at 1.0. She has had improved PO intake. Plan: -Encourage PO intake -Hold triamterene/HCTZ -Avoid nephrotoxic agents (2) Atrial fibrillation, new onset Impression: Patient presented with fatigue, noted to be in Atrial fibrillation with ratess in the 110s. The rate was controlled after IV metoprolol and a few doses of dig IV. Symptoms resolved. Trop <0.03--> 0.08, and now normal at 0.04, and this may have been due to stress of infection/afib. Plan: -ASA 325 given CHADS score 1, no falls x1yr -Continue Toprol xl, which was increased today to 37.5mg PO, with parameters , continue telemetry overnight. (3) Generalized weakness Impression: Having generalized weakness/fatigue at home for weeks, this likely could be from her Afib. She also had poor appetite and that could have compounded things. Now feeling back to her usual self, eating well. Plan: Mobilize with RN in room, asses for any further needs. Patient passed a physical therapy evaluation today and her daughter was updated. (4) Hypokalemia Impression: Upon admission patient's potassium was noted to be low at 2.9. This was likely from diuretics + poor PO intake. The patient was given IV and PO replacement. Potassium today was 3.6. Plan: Continue to monitor and encourage PO intake. (5) Urinary tract infection Impression: No prior history, WBC 19k, but UA in ER contaminated, only symptom is urgency but that just started here after IVF boluses. Urine cultures were not indicated. Patient has been afebrile. IV dosing was completed, so PO macrobid was started by ASA RANDLE. Plan: continue treatment and encourage frequent toileting. Qualifiers: Urinary tract infection type: acute cystitis Hematuria presence: with hematuria Qualified Code(s): N30.01 - Acute cystitis with hematuria
[2017-11-06] MEDS: ACETAMINOPHEN 325 MG TABLET PO PRN (21:28)
[2017-11-07 06:10] LABS: BASOPHILS # (AUTO) 0.1 10^3/uL (0.0-0.1); BASOPHILS % (AUTO) 0.6 %; EOSINOPHILS # (AUTO) 0.3 10^3/uL (0.0-0.7); HGB - HEMOGLOBIN 12.3 g/dL (12.0-16.0); LYMPHOCYTES # (AUTO) 1.3 10^3/uL (1.5-3.5); LYMPHOCYTES % (AUTO) 8.1 %; MEAN CORPUSCULAR HEMOGLOBIN 29.5 pg (27.0-31.0); MEAN CORPUSCULAR HGB CONC 32.5 g/dL (32.0-36.0); MEAN CORPUSCULAR VOLUME 90.8 fL (81.0-99.0); MONOCYTES # (AUTO) 1.4 10^3/uL (0.0-1.0); MONOCYTES % (AUTO) 8.2 %; NEUTROPHILS # (AUTO) 13.4 10^3/uL (1.5-6.6); NEUTROPHILS % (AUTO) 81.1 %; PLT - PLATELET COUNT 446 10^3/uL (130-450); RED BLOOD COUNT 4.18 10^6/uL (4.20-5.40); RED CELL DISTRIBUTION WIDTH 14.4 % (12.0-15.0); WHITE BLOOD COUNT 16.6 x10^3/uL (4.8-10.8)
[2017-11-07 06:23] LABS: ALBUMIN 2.2 g/dL (3.2-5.5); ALBUMIN/GLOBULIN RATIO 0.6 (1.0-2.2); BILIRUBIN,TOTAL 0.6 mg/dL (0.2-1.0); CALCIUM 8.6 mg/dL (8.5-10.3); TOTAL PROTEIN 6.1 g/dL (6.7-8.2)
--- NOTE | 2017-11-07 07:57 | Discharge Plan ---
Discharge Plan Disposition: Home, Self Care Condition: Good Prescriptions: Aspirin EC [Ecotrin] 325 mg PO DAILY #30 tablet Metoprolol Succinate [Toprol Xl] 37.5 mg PO DAILY #45 tablet Nitrofurantoin [Macrobid] 100 mg PO BID 10 Days #20 capsule Diet: Cardiac Activity Restrictions: No Restrictions Shower Restrictions: No Driving Restrictions: No Weight Bearing: Full Weight Additional Instructions or Follow Up instructions: You were admitted for treatment of your urinary tract infection and atrial fibrillation. You were monitored on telemetry and given antibiotics. You will now need to take one medication for your heart to control the rate, and you should take all of your antibiotic. Please see your PCP within one week. If your appetite is still poor, you should ask about this at your appointment. Take things slow and rest if you are tired. No Smoking: If you smoke, Please STOP! Call for help. Follow-up with: Harris Holt ARNP [Primary Care Provider] -
--- NOTE | 2017-11-07 08:04 | DISCHARGE SUMMARY ---
Discharge Summary Admit Date: 11/03/17 Discharge Date: 11/07/17 Discharging Provider: KASI Haas Primary Care Provider: Harris Holt Code Status: Attempt Resuscitation Condition at Discharge: Good Discharge Disposition: 01 Home, Self Care - DIAGNOSES Admission Diagnoses: Urinary tract infection, site not specified (N39.0) Unspecified atrial fibrillation (I48.91) Hypokalemia (E87.6) Dehydration (E86.0) Acute kidney failure with tubular necrosis (N17.0) Discharge Diagnoses with Status of Each Condition: New onset a-fib (I48.91) controlled, stable. UTI (urinary tract infection) (N39.0) ongoing treatment, stable. ROMI (acute kidney injury) (N17.9) stable. Hypokalemia (E87.6) resolved. Generalized weakness (R53.1) improved, services to continue. - HPI History of Present Illness: Natalya Vuong is an 87-year old white female with a past medical history of heart murmur, edema, and hiatal hernia. The patient presented to the ED after being sick for 2 weeks and staying in her [facility]. The patient was found to be extremely weak and in a new onset of atrial fibrillation. A UA shows +UTI. The patient denies fevers, chills, diarrhea, dysuria, urgency, frequency, palpitations, chest pain, or dyspnea. She has been having very poor PO intake as a consequence of not feeling well for the past couple of weeks. Patient will be admitted to inpatient for treatment of atrial fibrillation using telemetry and IV antibiotics, IVFs and laboratory monitoring. - HOSPITAL COURSE Hospital Course: 1) ROMI (acute kidney injury)- Patient had an elevated creatinine of 1.4 on admission with baseline of 0.8. This appears due to dehydration from poor PO intake and use of diuretics. Patient was given 2L NS. Creatinine has been slowly improving and continues to trend downward today at 1.0. She has had improved PO intake. Patient was encouraged to eat and drink, her diuretic was held for a few days to avoid further dehydration and nephrotoxic agents were used carefully. ROMI was resolved at the time of discharge. (2) Atrial fibrillation, new onset- Patient presented with fatigue, noted to be in Atrial fibrillation with rates in the 110s. The rate was controlled after IV metoprolol and a few doses of dig IV. Symptoms resolved. Trop 0.03, then 0.08, and finally at 0.04, and this may have been due to stress of infection verses atrial fibrillation. The patient denies chest pain, increased SOB or palpitations during her stay. ASA 325 given since her CHADS score = 1 and this will be prescribed for home use. She was started on Toprol xl, which was increased to 37.5mg PO daily as the final dose, with parameters, telemetry overnight showed atrial fibrillation 80-100's. (3) Generalized weakness- Patient was having generalized weakness/fatigue at home for weeks, this likely could be from her Afib. She also had poor appetite and that could have compounded things. Now feeling back to her usual self, eating well. Patient has been ambulating in her room with nursing staff without difficulty. Patient passed a physical therapy evaluation today and her daughter was updated. (4) Hypokalemia- Upon admission patient's potassium was noted to be low at 2.9. This was likely from diuretics + poor PO intake. The patient was given IV and PO replacement. Potassium today was 3.6. Patient was continuously monitored and was encouraged to increase her PO intake. (5) Urinary tract infection- The patient had no prior history of UTIs, but presented with an elevated WBC of 19k, UA in ER showed +UTI. Urine cultures were not indicated. Patient has been afebrile with the exception of 1 time after IV antibiotics were stopped. Patient was started on PO macrobid and is to continue for an additional 10 days outpatient. Patient was continued on antibiotic treatment and encourage frequent toileting. Disposition: Patient was in stable condition and was transported via private car by daughter on the day of discharge. She is to continue new prescriptions and follow up with her PCP in one week. She required no oxygen and was ambulating. - ALLERGIES Allergies/Adverse Reactions: Allergies Allergy/AdvReac Type Severity Reaction Status Date / Time No Known Drug Allergies Allergy Verified 07/17/14 16:28 - MEDICATIONS Home Medications: Ambulatory Orders Medication Instructions Recorded Confirmed Chlorthalidone 12.5 mg PO DAILY 11/03/17 11/04/17 Cholecalciferol (Vitamin D3) 5,000 units PO DAILY 11/04/17 11/04/17 [Vitamin D3] Docusate Sodium 200 mg PO DAILY 11/04/17 11/04/17 Aspirin EC [Ecotrin] 325 mg PO DAILY #30 tablet 11/07/17 Aspirin EC [Ecotrin] 325 mg PO DAILY #30 tablet 11/07/17 Metoprolol Succinate [Toprol Xl] 37.5 mg PO DAILY #45 tablet 11/07/17 Metoprolol Succinate [Toprol Xl] 37.5 mg PO DAILY #45 tablet 11/07/17 Nitrofurantoin Macrocrystal 100 mg PO BID 10 Days #20 capsule 11/07/17 [Nitrofurantoin] Nitrofurantoin [Macrobid] 100 mg PO BID 10 Days #20 capsule 11/07/17 - PHYSICAL EXAM AT DISCHARGE General Appearance: positive: No acute distress, Alert Eyes Bilateral: positive: Normal inspection, PERRL ENT: positive: ENT inspection nml, Pharynx nml, No signs of dehydration Neck: positive: Nml inspection, Thyroid nml, No JVD, Stiff neck Respiratory: positive: Chest non-tender, No respiratory distress, Breath sounds nml, Other (diminished.) Cardiovascular: positive: No gallop, Irregularly irregular, Systolic murmur, Decreased pulse(s) Peripheral Pulses: positive: 1+ Abdomen: positive: Non-tender, No organomegaly, Nml bowel sounds, No distention Back: positive: Nml inspection Skin: positive: No rash, Warm, Dry, Pallor Extremities: positive: Non-tender, Full ROM, Nml appearance, Pedal edema (trace) Neurologic/Psychiatric: positive: Oriented x3, CN's nml (2-12), Motor nml, Sensation nml, Depressed mood/affect, Other (baseline LUMMI, slow to respond) Reflexes: Bicep (R): 2+, Bicep (L): 2+ - LABS Result Diagrams: 11/07/17 05:32 11/07/17 05:32 - DIAGNOSTIC IMAGING Diagnostic Imaging Results: Final report reviewed Diagnostic Imaging Results Comments: EXAM: CHEST RADIOGRAPHY EXAM DATE: 11/03/2017 07:43 PM. CLINICAL HISTORY: Chest pain left sided. COMPARISON: 12/18/2016. TECHNIQUE: 2 views. FINDINGS: Lungs/Pleura: No focal consolidation. Mild diffuse interstitial prominence is similar to prior and likely chronic. No pleural effusion. No pneumothorax. Normal volumes. Mediastinum: Heart and mediastinal contours are within normal limits. Hilar hernia again demonstrated. Other: None. IMPRESSION: No acute cardiopulmonary abnormality. TWO VIEW CHEST: 11/03/2017 CLINICAL INDICATION: Fever, rib pain. COMPARISON: 11/03/2017 FINDINGS: Frontal and lateral views of the chest demonstrate a mildly enlarged cardiac silhouette. There is a moderate hiatal hernia present. Trace effusions are seen posteriorly. No focal infiltrate or pneumothorax is present. IMPRESSION: CARDIOMEGALY AND TRACE EFFUSIONS. MODERATE HIATAL HERNIA. - FOLLOW UP Follow Up: Disposition: Home, Self Care Condition: Good Prescriptions: Metoprolol Succinate [Toprol Xl] 37.5 mg PO DAILY #45 tablet Nitrofurantoin [Macrobid] 100 mg PO BID 10 Days #20 capsule Diet: Cardiac Activity Restrictions: No Restrictions Shower Restrictions: No Driving Restrictions: No Weight Bearing: Full Weight Additional Instructions or Follow Up instructions: You were admitted for treatment of your urinary tract infection and atrial fibrillation. You were monitored on telemetry and given antibiotics. You will now need to take one medication for your heart to control the rate, and you should take all of your antibiotic. Please see your PCP within one week. If your appetite is still poor, you should ask about this at your appointment. Take things slow and rest if you are tired. - TIME SPENT Time Spent in Discharge (Minutes): 45
[2017-11-07] MEDS ORDERED: METOPROLOL SUCCINATE 25 MG TABLET PO SCH (09:00)
[2017-11-07] MEDS: POLYETHYLENE GLYCOL 3350 17 GM PACKET PO SCH (09:28)
[2017-11-07] MEDS: CHLORTHALIDONE 25 MG TABLET PO SCH (09:29)
[2017-11-07] MEDS: ASPIRIN EC 325 MG TABLET PO SCH (09:29)
[2017-11-07] MEDS: FAMOTIDINE 20 MG TABLET PO SCH (09:32)
[2017-11-07] MEDS: ENOXAPARIN 80 MG/0.8 ML SYRINGE SUBQ SCH (09:32)
[2017-11-07] MEDS: NITROFURANTOIN MACRO 100 MG CAPSULE PO SCH (09:32)
[2017-11-07 13:00] VITALS: BP 147/74
== END 2017-11-07 14:10 | disposition home or self-care (01) | DRG 689 ==
LOC: EDUNIT# → ED 17:29 → MS2 22:57
PROVIDERS: ADMIT Internal Medicine; ATTEND Nurse Practitioner
DX: N30.01 Acute cystitis with hematuria (principal); N17.0 Acute kidney failure with tubular necrosis; E86.0 Dehydration; R53.1 Weakness; E87.6 Hypokalemia; I10 Essential (primary) hypertension; E78.00 Pure hypercholesterolemia, unspecified; K21.9 Gastro-esophageal reflux disease without esophagitis; M19.90 Unspecified osteoarthritis, unspecified site; I48.91 Unspecified atrial fibrillation; T50.2X5A Adverse effect of carbonic-anhydrase inhibitors, benzothiadiazides and other diuretics, initial encounter
CPT/HCPCS: 36415; 71046; 80048; 80053; 81001; 81003; 82550; 83605; 83690; 83735; 83880; 84443; 84484; 85025; 87040; 87086; 87275; 87276; 93005; 93306; 96365; 96367; 96375; 99284; 99285

== ENCOUNTER 2017-11-25 14:39 | Outpatient (CLI) | payer MEDICARE, OTHER ==
[2017-11-25 17:41] LABS: CALCIUM 9.3 mg/dL (8.5-10.3)
== END 2017-11-25 14:40 | disposition home or self-care (01) ==
LOC: LAB.F 14:39
PROVIDERS: ATTEND Internal Medicine
DX: I48.91 Unspecified atrial fibrillation (principal)
CPT/HCPCS: 36415; 80048; 84443

== ENCOUNTER 2017-12-04 13:52 | Outpatient (CLI) | payer MEDICARE, OTHER ==
[2017-12-04 17:41] LABS: CALCIUM 9.3 mg/dL (8.5-10.3); CREATININE 1.2 mg/dL (0.4-1.0)
== END 2017-12-04 13:53 | disposition home or self-care (01) ==
LOC: LAB.F 13:52
PROVIDERS: ATTEND Internal Medicine
DX: E87.6 Hypokalemia (principal)
CPT/HCPCS: 36415; 80048

== ENCOUNTER 2017-12-30 08:00 | Outpatient (CLI) | payer MEDICARE, OTHER ==
[2017-12-30 15:56] LABS: BILIRUBIN,URINE NEGATIVE (NEGATIVE); GLUCOSE, URINE (UA) NEGATIVE (NEGATIVE); KETONES,URINE (UA) NEGATIVE (NEGATIVE); LEUKOCYTE ESTERASE, URINE NEGATIVE (NEGATIVE); NITRITE,URINE NEGATIVE (NEGATIVE); OCCULT BLOOD,URINE LARGE (NEGATIVE); PH,URINE 7.5 PH (5.0-7.5); PROTEIN,URINE NEGATIVE (NEGATIVE); UROBILINOGEN,URINE 0.2 (NORMAL) E.U./dL (NORMAL)
[2017-12-30 16:10] LABS: CLARITY,URINE HAZY (CLEAR); RBC,URINE TNTC /HPF (0-5)
[2017-12-30 16:11] LABS: BACTERIA,URINE None Seen /HPF (None Seen); SQUAMOUS EPITHELIAL CELL,UR MANY Squamous (<= Few)
== END 2017-12-30 08:01 ==
LOC: LAB.R 08:00
PROVIDERS: ATTEND Obstetrics & Gynecology
DX: R31.9 Hematuria, unspecified (principal)
CPT/HCPCS: 81001; 87086

== ENCOUNTER 2018-01-06 10:33 | Outpatient (CLI) | payer MEDICARE, OTHER ==
[2018-01-06 11:08] LABS: CREATININE 0.9 mg/dL (0.4-1.0)
[2018-01-06] MEDS ORDERED: IOPAMIDOL-300 100 ML VIAL ONE (11:09)
[2018-01-06] MEDS ORDERED: IOPAMIDOL-300 100 ML VIAL IVP ONE (12:29)
--- NOTE | 2018-01-06 14:29 | CT Report ---
CT IVP: 01/06/2018 CLINICAL INDICATION: Hematuria. TECHNIQUE: Axial CT images of the abdomen and pelvis were obtained prior to and following 100 mL Isovue 300 intravenously, using split bolus technique. COMPARISON: No previous CT is available for comparison. FINDINGS: Limited evaluation of the lung bases demonstrates a large hiatal hernia and basilar fibrosis. ABDOMEN: On the unenhanced images, small cortical calcifications are seen in the left kidney. No nephrolithiasis or hydronephrosis is appreciated. The kidneys demonstrate symmetric uptake and excretion of contrast. A small cortical cyst is seen on the left kidney. No solid renal lesion or collecting system lesion is appreciated. The ureters are not dilated. The liver, spleen, pancreas and adrenal glands appear unremarkable. The gallbladder is not dilated. No bowel dilatation, free gas, or free fluid is present. No abdominal adenopathy is seen. PELVIS: The distal ureters and urinary bladder appear unremarkable. No pelvic adenopathy or free fluid is present. The pelvic organs appear unremarkable. Osseous structures demonstrate degenerative changes. IMPRESSION: NO EVIDENT ETIOLOGY FOR PATIENT'S HEMATURIA. CONSIDER CYSTOSCOPY FOR FURTHER EVALUATION. CT DOSE REDUCTION STATEMENT In accordance with CT protocol optimization, one or more of the following dose reduction techniques were utilized for this exam: automated exposure control, adjustment of mA and/or KV based on patient size, or use of iterative reconstructive technique. TD: 01/06/2018 14:27 MTDD
== END 2018-01-06 10:34 | disposition home or self-care (01) ==
LOC: LAB 10:33 → DI 10:34
PROVIDERS: ATTEND Obstetrics & Gynecology
DX: R31.9 Hematuria, unspecified (principal)
CPT/HCPCS: 36415; 74178; 82565; Q9967

== ENCOUNTER 2018-01-12 12:09 | Outpatient (CLI) | payer MEDICARE, OTHER ==
[2018-01-12 17:44] LABS: BILIRUBIN,URINE NEGATIVE (NEGATIVE); GLUCOSE, URINE (UA) NEGATIVE (NEGATIVE); KETONES,URINE (UA) NEGATIVE (NEGATIVE); LEUKOCYTE ESTERASE, URINE NEGATIVE (NEGATIVE); NITRITE,URINE NEGATIVE (NEGATIVE); OCCULT BLOOD,URINE NEGATIVE (NEGATIVE); PROTEIN,URINE NEGATIVE (NEGATIVE); UROBILINOGEN,URINE 0.2 (NORMAL) E.U./dL (NORMAL)
[2018-01-12 17:45] LABS: CLARITY,URINE CLEAR (CLEAR)
[2018-01-12 18:51] LABS: BACTERIA,URINE None Seen /HPF (None Seen); RBC,URINE 0-5 /HPF (0-5); SQUAMOUS EPITHELIAL CELL,UR MOD Squamous (<= Few)
== END 2018-01-12 12:10 | disposition home or self-care (01) ==
LOC: LAB.R 12:09
PROVIDERS: ATTEND Obstetrics & Gynecology
DX: R31.9 Hematuria, unspecified (principal)
CPT/HCPCS: 81001; 87086

== ENCOUNTER 2018-01-27 08:00 | Outpatient (CLI) | payer MEDICARE, OTHER ==
[2018-01-27 16:21] LABS: BILIRUBIN,URINE NEGATIVE (NEGATIVE); GLUCOSE, URINE (UA) NEGATIVE (NEGATIVE); KETONES,URINE (UA) NEGATIVE (NEGATIVE); LEUKOCYTE ESTERASE, URINE LARGE (NEGATIVE); NITRITE,URINE NEGATIVE (NEGATIVE); OCCULT BLOOD,URINE SMALL (NEGATIVE); PH,URINE 6.5 PH (5.0-7.5); PROTEIN,URINE TRACE mg/dL (NEGATIVE); UROBILINOGEN,URINE 0.2 (NORMAL) E.U./dL (NORMAL)
[2018-01-27 16:30] LABS: BACTERIA,URINE Moderate /HPF (None Seen); CLARITY,URINE CLOUDY (CLEAR); SQUAMOUS EPITHELIAL CELL,UR NONE SEEN (<= Few); WBC CLUMPS,URINE PRESENT
== END 2018-01-27 08:01 ==
LOC: LAB.R 08:00
PROVIDERS: ATTEND Obstetrics & Gynecology
DX: N39.0 Urinary tract infection, site not specified (principal)
CPT/HCPCS: 81001; 87086

== ENCOUNTER 2018-02-27 11:49 | Outpatient (CLI) | payer MEDICARE, OTHER ==
--- NOTE | 2018-02-27 14:01 | CT Report ---
Procedure Date: 02/27/2018 Accession Number: [id number] / [id number] Procedure: CT - Chest W/O CPT Code: FULL RESULT: EXAM: Chest W/O DATE: 02/27/2018 12:09 PM CLINICAL HISTORY: LUNG NODULE COMPARISON: None. TECHNIQUE: Routine helical CT imaging was performed through the chest. IV contrast: None. Reconstructions: Coronal and sagittal. In accordance with CT protocol optimization, one or more of the following dose reduction techniques were utilized for this exam: automated exposure control, adjustment of mA and/or KV based on patient size, or use of iterative reconstructive technique. FINDINGS: Lungs/Pleura: The lungs demonstrate peripheral fibrosis. Mild bronchiectasis is present. There is a 7 mm noncalcified nodule in the posterior right upper lobe (axial image 12). Mediastinum: Cardiomegaly. Vascular calcifications. No adenopathy. Large hiatal hernia. Bones: Degenerative changes. Visualized Abdomen: Unremarkable. Other: None. IMPRESSION: 7 mm noncalcified pulmonary nodule in the posterior right upper lobe. Extensive peripheral fibrosis and mild bronchiectasis. Large hiatal hernia. Recommend follow-up of the described nodule(s) according to the following guidelines: Fleischner Society Recommendations 2017 RSNA 2017 Solid Nodules-Low Risk Patients: <6 mm (single or multiple) - No routine follow-up* 6-8 mm (single) -CT 6-12 at mo, then consider CT at 18-24 mo 6-8mm (multiple) -CT 3-6 at mo, then consider at CT 18-24 mo >8 mm (single) -Consider CT, PET/CT, or tissue sampling at 3 months >8 mm (multiple) -CT 3-6 at mo, then consider CT at 18-24 mo Solid Nodules-High Risk Patients: <6 mm (single or multiple) -Optional CT at 12 months* 6-8 mm (single) -CT at 6-12 mo, then CT at 18-24 months 6-8mm (multiple) -CT at 3-6mo, then CT at 18-24 mo >8 mm (single) -Consider CT, PET/CT, or tissue sampling at 3 months >8 mm (multiple) -CT at 3-6 mo, then at 18-24 mo *Nodules < 6mm do not require routine follow-up, but suspicious nodule morphology, upper lobe location, or both may warrant 12 mo. follow-up Subsolid nodules: <6 mm (single, GG or part solid) -No routine follow-up >=6 mm (single GG) -CT at 6-12 mo to confirm, then CT q2 years until 5 years >=6 mm (single part solid) -CT at 3-6 months to confirm, if unchanged and solid <6mm, annual CT for 5 years <6 mm (multiple GG or part solid) -CT at 3-6 mo. If stable, consider CT at 2 and 4 years >=6 mm (multiple GG or part solid) -CT at 3-6 mo. Subsequent management based on most suspicious nodule(s). Consider follow-up at 2 and 4 years for certain suspicious nodules <6mm. If solid component develops or growth, consider resection. RADIA
== END 2018-02-27 11:50 | disposition home or self-care (01) ==
LOC: DI 11:49
PROVIDERS: ATTEND Internal Medicine Pulmonary Disease
DX: R91.1 Solitary pulmonary nodule (principal); J84.10 Pulmonary fibrosis, unspecified; J47.9 Bronchiectasis, uncomplicated; K44.9 Diaphragmatic hernia without obstruction or gangrene
CPT/HCPCS: 71250

== ENCOUNTER 2018-03-11 11:26 | Outpatient (CLI) | payer MEDICARE, OTHER ==
--- NOTE | 2018-03-11 15:11 | XRAY Report ---
Procedure Date: 03/11/2018 Accession Number: [id number] / [id number] Procedure: XRS - Knee 3 View RT CPT Code: FULL RESULT: EXAM: Knee 3 View RT DATE: 03/11/2018 11:42 AM CLINICAL HISTORY: KNEE JOINT PAIN X 3 MONTHS, RIGHT COMPARISON: None. TECHNIQUE: 3 views. FINDINGS: Bones: Normal. No fractures or bone lesions. Joints: Moderate osteoarthritis. No effusion. Soft Tissues: Normal. No soft tissue swelling. IMPRESSION: Moderate osteoarthritis. RADIA
== END 2018-03-11 11:27 | disposition home or self-care (01) ==
LOC: DI.S 11:26
PROVIDERS: ATTEND Internal Medicine
DX: M17.11 Unilateral primary osteoarthritis, right knee (principal)

== ENCOUNTER 2018-04-16 08:00 | Outpatient (CLI) | payer MEDICARE, OTHER ==
[2018-04-16 16:13] LABS: BILIRUBIN,URINE NEGATIVE (NEGATIVE); GLUCOSE, URINE (UA) NEGATIVE (NEGATIVE); KETONES,URINE (UA) NEGATIVE (NEGATIVE); LEUKOCYTE ESTERASE, URINE NEGATIVE (NEGATIVE); NITRITE,URINE NEGATIVE (NEGATIVE); OCCULT BLOOD,URINE NEGATIVE (NEGATIVE); PH,URINE 6.5 PH (5.0-7.5); PROTEIN,URINE NEGATIVE (NEGATIVE); UROBILINOGEN,URINE 0.2 (NORMAL) E.U./dL (NORMAL)
[2018-04-16 16:29] LABS: CLARITY,URINE CLEAR (CLEAR); RBC,URINE 0-5 /HPF (0-5); SQUAMOUS EPITHELIAL CELL,UR MANY Squamous (<= Few); WBC CLUMPS,URINE PRESENT
[2018-04-16 16:30] LABS: BACTERIA,URINE Rare /HPF (None Seen); CASTS, URINE 0-2 Hyaline Casts /LPF
== END 2018-04-16 08:01 | disposition home or self-care (01) ==
LOC: LAB.R 08:00
PROVIDERS: ATTEND Obstetrics & Gynecology
DX: R35.0 Frequency of micturition (principal)
CPT/HCPCS: 81001; 87086

== ENCOUNTER 2018-05-27 13:02 | Outpatient (CLI) | payer MEDICARE, OTHER ==
--- NOTE | 2018-05-27 14:38 | DEXA Report ---
Reason: ASYMPTOMATIC MENOPAUSAL STATE Procedure Date: 05/27/2018 Accession Number: [id number] / [id number] Procedure: DEX - Dexa Spine and/or Hip CPT Code: FULL RESULT: EXAM: Dexa Spine and/or Hip DATE: 05/27/2018 1:27 PM CLINICAL HISTORY: ASYMPTOMATIC MENOPAUSAL STATE TECHNIQUE: Dual energy x-ray absorptiometry (DEXA) was performed on a [employer] System. Regions measured are the AP Spine, femoral neck, and if needed forearm. COMPARISON: None. In accordance with the International Society for Clinical Densitometry (ISCD) guidelines, data from previous exams may be reanalyzed using current recommendations and techniques. This is done to allow a more accurate basis for comparison with the current study. FINDINGS: The data for the lumbar spine is as follows: BMD (g/cm/cm) T-SCORE Z-SCORE REGION L1 1.274 1.2 2.8 L2 1.350 1.3 2.8 L3 1.475 2.3 3.8 L4 1.886 5.7 7.3 TOTAL 1.460 2.3 3.9 NOTE: All evaluable vertebrae are used for classification The data for the hip is as follows: BMD (g/cm/cm) T-SCORE Z-SCORE REGION Neck 0.816 -1.6 0.7 TOTAL 0.836 -1.4 0.8 NOTE: The femoral neck or total proximal femur, whichever is lowest, is used for classification. IMPRESSION: THE WHO CLASSIFICATION BASED ON THE INTERNATIONAL REFERENCE STANDARD IS OSTEOPENIA. THE FRACTURE RISK IS INCREASED. RECOMMENDATION: Patients with diagnosis of osteoporosis or osteopenia should have regular bone mineral density assessment. For those eligible for Medicare, routine testing is allowed once every 2 years. Testing frequency can be increased for patients who have rapidly progressing disease or for those who are receiving medical therapy to restore bone mass. COMMENT: World Health Organization (WHO) definitions for osteoporosis and osteopenia: NORMAL BMD: T-score at -1.0 or higher, fracture risk is low OSTEOPENIA BMD: T-score between -1.0 and -2.5, fracture risk is increased. OSTEOPOROSIS BMD: T-score at -2.5 or lower, fracture risk is high. National Osteoporosis Foundation recommends: 1. Obtain adequate dietary calcium (at least 1200 mg per day) and vitamin D (400-800 international units per day). 2. Participate, as appropriate, in regular weightbearing and muscle-strengthening exercise. 3. Avoid tobacco use and reduce alcohol and caffeine intake. 4. For more detailed information see the website at www.NOF.org.
== END 2018-05-27 13:03 | disposition home or self-care (01) ==
LOC: DI 13:02
PROVIDERS: ATTEND Internal Medicine
DX: M85.88 Other specified disorders of bone density and structure, other site (principal)
CPT/HCPCS: 77080

== ENCOUNTER 2018-07-27 13:13 | Outpatient (CLI) | payer MEDICARE, OTHER ==
[2018-07-27 17:45] LABS: CALCIUM 9.1 mg/dL (8.5-10.3); CREATININE 1.1 mg/dL (0.4-1.0)
== END 2018-07-27 13:14 | disposition home or self-care (01) ==
LOC: LAB.F 13:13
PROVIDERS: ATTEND Internal Medicine
DX: I10 Essential (primary) hypertension (principal)
CPT/HCPCS: 36415; 80048